=== PATIENT | male | born 1955 | race Caucasian/White ===

== ENCOUNTER → 2016-12-02 | Outpatient (CLI) | payer OTHER ==
--- NOTE | 2016-12-02 11:22 | XR ---
EXAMINATION TYPE: XR Hip Limited LT DATE OF EXAM ORDERED: 12/02/2016 11:02 AM HISTORY: Hip pain. COMPARISON: None. FINDINGS: There are mild remodeling changes within the left hip. There is mild overgrowth of the misty tabulum. Joint spaces are reasonably well-maintained. No acute osseous lesion is seen. Multiple phleboliths are noted within the pelvis. IMPRESSION: 1. NO ACUTE OSSEOUS LESION. 2. MILD DEGENERATIVE CHANGE.
--- NOTE | 2016-12-02 11:44 | XR ---
EXAMINATION TYPE: XR lumbar spine 2 or 3V DATE OF EXAM ORDERED: 12/02/2016 11:02 AM HISTORY: Left hip pain. COMPARISON: Previous study dated 12/16/2014. FINDINGS: Vertebral body height and alignment are maintained. There is no spondylolysis or spondylol isthesis. There is hypertrophic spondylosis throughout the lumbar spine. There is degenerative disc d isease and disc space loss at L4-5. The facet arthropathy in the lower lumbar facets. The pedicles ar e intact. IMPRESSION: 1. NO ACUTE OSSEOUS LESION. 2. STABLE DEGENERATIVE CHANGE.
== END | disposition home or self-care (01) ==
LOC: RADXRMAIN 10:45
PROVIDERS: ATTEND Internal Medicine
DX: M16.12 Unilateral primary osteoarthritis, left hip (principal); M47.816 Spondylosis without myelopathy or radiculopathy, lumbar region
CPT/HCPCS: 72100; 73502

== ENCOUNTER → 2020-08-31 | Outpatient (CLI) | payer MEDICARE, OTHER ==
--- NOTE | 2020-09-01 20:52 | CT ---
EXAMINATION TYPE: CT urogram wo/w con DATE OF EXAM: 08/31/2020 COMPARISON: Pelvis 06/06/2016 HISTORY: Gross Hematuria CT DLP: 2132 mGycm, Automated Exposure Control for Dose Reduction was Utilized. CONTRAST: CT urogram protocol with CT scan of the abdomen and pelvis is performed with water oral contrast and with IV Contrast, patient injected with 100 mL of Isovue 300. FINDINGS: LUNGS BASES: Normal. LIVER: Normal. BILIARY SYSTEM: Normal. PANCREAS: Normal. SPLEEN: Normal. ADRENALS: Normal. KIDNEYS: 8 mm right renal cyst of the upper pole. Otherwise normal. UROTHELIAL SYSTEM: No hydronephrosis or hydroureter. No urolithiasis. No abnormal urothelial enhancem ent, stricture, dilatation, or mass. Urinary bladder is normal with no evidence of thickening or mass . BOWEL: No obstruction or thickening. PERITONEUM: No pneumoperitoneum. No free fluid. Small fat-containing bilateral inguinal hernias. LYMPH NODES: No lymphadenopathy. PELVIS: Normal. VASCULATURE: No abdominal aortic aneurysm. MUSCULOSKELETAL: Degenerative changes of the spine. IMPRESSION: 1. No findings to explain patient's gross hematuria. No urolithiasis or urothelial abnormality. 2. 8 mm right renal cyst.
== END | disposition home or self-care (01) ==
LOC: RADCTMAIN 13:28
PROVIDERS: ATTEND Urology
DX: N28.1 Cyst of kidney, acquired (principal)
CPT/HCPCS: 74178; 74400; Q9967

== ENCOUNTER 2021-12-21 08:05 | Emergency (ER) | payer MEDICARE, OTHER ==
[2021-12-21 08:14] VITALS: RESP 18; TEMP 98.3
[2021-12-21] MEDS ORDERED: LIDOCAINE 1% INJ 10MG/ML (20 ML MDV) SQ ONE (08:38)
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
--- NOTE | 2021-12-21 09:14 | XR ---
EXAMINATION TYPE: XR foot complete RT DATE OF EXAM: 12/21/2021 CLINICAL HISTORY: Injury with pain. TECHNIQUE: Frontal, lateral, and oblique images of the right foot are obtained. COMPARISON: None FINDINGS: There is no acute fracture/dislocation evident in the right foot. Focal soft tissue swelli ng or hematoma along the dorsal surface at level of the metatarsal heads. The joint spaces in the rig ht foot appear within normal limits. IMPRESSION: As above.
[2021-12-21] MEDS ORDERED: CEPHALEXIN 500MG STARTER PACK 4 CAP BTL PO STA (10:49)
[2021-12-21] MEDS ORDERED: SULFAMETH-TMP DS STARTER PACK 2 TAB BTL PO STA (10:49)
[2021-12-21 11:03] VITALS: BP 140/88; PULSE 80
== END 2021-12-21 11:02 | disposition home or self-care (01) ==
LOC: EC 08:05
DX: L03.116 Cellulitis of left lower limb (principal); I10 Essential (primary) hypertension; Z87.891 Personal history of nicotine dependence
CPT/HCPCS: 73630; 99283; J2001